=== PATIENT | female | born 1985 | race Caucasian/White ===

== ENCOUNTER 2019-06-01 12:22 | Outpatient (CLI) | payer OTHER, SELFPAY ==
--- NOTE | ~2019-06-01 | CT_ITS ---
EXAMINATION: CT abdomen pelvis wo con DATE: 06/01/2019 12:50 INDICATION: Left lower quadrant pain for one week TECHNIQUE: Computed tomography (CT) of the abdomen and pelvis was performed without intravenous contr ast. The dose-length product (DLP) was 1505.85 mGy-cm. Automated exposure control and iterative recon struction technique were employed. COMPARISON: None FINDINGS: The lung bases are clear. The heart size is normal. The liver, spleen, pancreas, gallbladde r, and adrenal glands are normal. There are punctate nonobstructing stones of the otherwise normal ki dneys. No stones are identified in the ureters or bladder. There is no hydronephrosis or hydroureter. No pathologically enlarged abdominal or pelvic lymph nodes are identified. There is no free intraper itoneal gas or evidence of bowel obstruction. The appendix is normal. There is a fat-containing umbil ical hernia. An IUD is in the uterus in expected position. There is mild lumbar spondylosis. IMPRESSION: 1. No CT correlate for the patient's symptoms. 2. Punctate nonobstructing bilateral nephrolithiasis. Reviewed, dictated and finalized at location A. F COINS INSPECTOR
== END 2019-06-01 12:23 | disposition home or self-care (01) ==
PROVIDERS: Visit Provider Family Medicine
DX: R10.32 Left lower quadrant pain (principal); N20.0 Calculus of kidney
CPT/HCPCS: 74176

== ENCOUNTER 2022-04-13 13:53 | Outpatient (CLI) | payer OTHER, SELFPAY ==
--- NOTE | ~2022-04-13 | XR_ITS ---
EXAM: XR abdomen obstructive series DATE: 04/13/2022 14:15 HISTORY: K59.09 - Other constipation, ABDOMINAL PAIN . COMPARISON: None available. FINDINGS: IUD projecting over the pelvis Clear lung bases. Normal bowel gas pattern. No organomegaly . 4 mm, somewhat linear calcification to the projecting at the tip of the right L4 transverse process . Pelvic phleboliths. Mild lumbar scoliosis, otherwise the regional bones and soft tissues normal for age. IMPRESSION: 4 mm calcification projecting over the tip of the right L4 transverse process, correlate with symptoms of renal colic. No radiographic evidence of obstruction or ileus. Reviewed, dictated and finalized at location K. ATIENT PSYCHIATRIST IMPRESSION: 4 mm calcification projecting over the tip of the right L4 transver se process, correlate with symptoms of renal colic. No radiographic evidence of obstruction or ileus.
== END 2022-04-13 13:54 | disposition home or self-care (01) ==
PROVIDERS: PCP Family Medicine; Visit Provider Family Medicine
DX: K59.09 Other constipation (principal); R10.9 Unspecified abdominal pain
CPT/HCPCS: 74019

== ENCOUNTER → 2022-04-14 08:30 | Outpatient (CLI) | payer OTHER, SELFPAY ==
--- NOTE | ~2022-04-14 | US_ITS ---
EXAMINATION: US abdomen limited DATE: 04/14/2022 08:48 INDICATION: Right upper quadrant pain TECHNIQUE: Multiple grayscale and Doppler ultrasound images of the abdomen were obtained. COMPARISON: 03/14/2013 FINDINGS: Bowel gas obscures visualization of the pancreas. The visualized portions of the pancreas a re unremarkable. The liver is normal with normal echogenicity and echotexture. No surface nodularity. Normal hepatopetal flow in the main portal vein. Stones are present in the nondistended gallbladder. There is no gallbladder wall thickening or pericholecystic fluid. The normal common bile duct measur es 3 mm. There was no sonographic Santillan sign. IMPRESSION: 1. Cholelithiasis without additional findings of cholecystitis. Reviewed, dictated and finalized at location A. ATING MACHINE OPERATOR
== END ==
PROVIDERS: PCP Family Medicine; Visit Provider Family Medicine
DX: R10.11 Right upper quadrant pain (principal); K80.20 Calculus of gallbladder without cholecystitis without obstruction
CPT/HCPCS: 76705

== ENCOUNTER 2024-08-21 12:30 | Outpatient (CLI) | payer OTHER, SELFPAY | END 2024-08-21 12:31 | disposition home or self-care (01) | LOC: MICIMG 12:32 | PROVIDERS: PCP Family Medicine; Visit Provider Physician Assistant | DX: M79.671 Pain in right foot (principal) | CPT/HCPCS: 73630 ==

== ENCOUNTER 2024-10-08 10:44 | Outpatient (CLI) | payer OTHER, SELFPAY | END 2024-10-08 10:45 | disposition home or self-care (01) | LOC: ANHLAB 10:47 | PROVIDERS: PCP Family Medicine | DX: J03.91 Acute recurrent tonsillitis, unspecified (principal) | CPT/HCPCS: 87081 ==

== ENCOUNTER 2024-11-16 08:01 | Outpatient (CLI) | payer OTHER, SELFPAY ==
--- NOTE | ~2024-11-16 | MR_ITS ---
MRI of the right foot Clinical history spontaneous rupture flexor tendon TECHNIQUE: Sagittal T1-weighted and STIR images, axial proton-density and proton-density fat-sat imag es, and coronal T1-weighted and proton-density fat-sat images were performed. FINDINGS: Bone marrow signals are unremarkable. No evidence for osteomyelitis. No fracture or bone ma rrow edema seen. Joint spaces are intact. No significant joint effusion. Flexor and extensor tendons are intact. There is mild intermetatarsal bursitis the first and third in terspaces. No Vasques's neuroma. No other soft tissue mass or fluid collection seen. Plantar fascia in tact. IMPRESSION: Visualized tendons are intact. Probable mild intermetatarsal bursitis at the first and third interspaces. Reviewed, dictated and finalized at location .
== END 2024-11-16 08:02 | disposition home or self-care (01) ==
LOC: MICIMG 08:02
PROVIDERS: PCP Family Medicine; Visit Provider Podiatrist Foot & Ankle Surgery
DX: M66.371 Spontaneous rupture of flexor tendons, right ankle and foot (principal)
CPT/HCPCS: 73718

== ENCOUNTER 2024-11-27 09:35 | Outpatient (CLI) | payer OTHER, SELFPAY ==
--- OUTSIDE RECORDS SUMMARY | 2024-11-27 09:49 | XMS_ITS | Data Portability ---
Author Organization [facility] Address [address] [place] [address] Care Team Providers Care Lead Pastor Name Role Phone JOY COLLINS Primary Care Provider Assessment Encounter Date Assessment Date Assessment LastModified by Organization Details LastModified Time 03/10/2021 03/10/2021 Annual gynecological exam performed. Patient will come back in a year unless there are new symptoms. [email or web address] Not available 03/10/2021 13:33:11 04/02/2022 04/02/2022 Annual gynecological exam performed. Patient will come back in a year unless there are new symptoms. Not available 04/02/2022 12:12:14 Plan of Treatment Reminders Order Date Submit Date Provider Last Modified By Organization Details Last Modified Time Details Appointments None recorded . Lab beta-HCG , quantita tive, serum or plasma 021 03/10/20 [facility] (Lab), [address], [place], [address], 02:16:43 Referral None recorded . Procedures None recorded . Surgeries None recorded . Imaging None recorded . Medication Orders None recorded . Patient TargetsNo targets recorded. Patient InstructionsNo instructions recorded. Reason for Referral None Reported. 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 Shift in renate sugge stive of bacte rial vagin osis. Elect karley pollack daisy d by Juhi Hernandez ret, CT on 03/17 at 9:30 AM ----- ----- ----- ----- ----- ----- ----- ----- ----- ----- ----- ----- ----- ----- ----- ----- ----- ---- HPV RESUL TS: HPV mRNA E6/E7 : Posit khushboo - HPV mRNA Detec julio cesar HPV GENOT YPE 16 (MARY ANN) : Not Detec julio cesar HPV GENOT YPE 18/45 (MARY ANN) : Not Detec julio cesar NOTE: This high risk HPV mRNA assay detec ts fourt een high- risk HPV types (16, 18, 31, 33, 35, 39, 45, 51, 52, 56, 58, 59, 66, 68) witho ut diffe renti ation . This assay can diffe renti ate HPV 16 from HPV 18/45 , but does not diffe renti ate betwe en HPV 18 and HPV 45. A negat khushboo HPV 16, 18/45 genot ype assay resul t does not exclu de the possi bilit y of cytol ogic abnor malit ies or of futur e or under lying JANET 1, JANET 3 or cance r. COMME NT: Note: This speci men was revie wed by a Cytot echno logis t and/o r Patho logis t (as indic ated in this repor t) after evalu ation using the Thinp rep Imagi ng Syste m. CLINI PALMA INFOR MATIO N: Menst rual Statu s: LMP (if appli cable ): Clini palma Histo ry/Pr eviou s Pap: Type of Neopl jaymie (if appli cable ): Signi fican t Clini palma Findi ngs: Other Histo ry: Hormo matthew (if appli cable ): PAP EDUCA HERI L NOTE: The Pap Test is a scree ava test with an inher ent false negat khushboo rate. Liqui d-bas e sampl ing may decre ase, but will not elimi bessie, false negat khushboo resul ts. A negat khushboo resul t does not precl ude the prese nce and/o r devel opmen t of disea se, since the prese nce of abnor mal cells in the sampl e depen ds on the locat ion of the lesio n and sampl ing techn ique. Eligio nued regul ar scree ava is the best metho d of cance r preve ntion . If repor julio cesar cytol ogic findi ng do not corre late with physi palma and/o r histo rical findi ngs, furth er inves tigat ion is recom nano d, as clini mario gabriel nted. Not Available [facility] (Lab) [address], [place], [address], 03/17/2021 10:33:55 04/01/20 21 04/01/2021 BHCG, QUANT ITATI VE B-HCG <0.2 mIU/m L This assay was perfo rmed using [employer] ratio n reage nts and test kits. Value s obtai john with other assay metho ds or kits canno t be used inter dumont eably . Refer ence Range s: Non-p regna nt, preme nopau nehal women : 0.0-5 .3 mIU/m L Postm enopa usal women : 0.0-7 .0 mIU/m L Glenna l Pregn sheree: Gesta heri l Age bHCG Conc. - mIU/m L 3 Weeks 5.8 - 71.7 4 Weeks 9.5 - 750 5 Weeks 217-7 138 6 Weeks 158 - 31,79 5 7 Weeks 3,697 - 162,5 63 8 Weeks 32,06 5 - 149,5 71 9 Weeks 63,80 3 - 151,4 10 10 Weeks 46,50 9 - 186,9 77 12 Weeks 27,83 2 - 210,6 12 14 Weeks 13,95 0 - 62,53 0 15 Weeks 12,03 9 - 70,97 1 16 Weeks 9,040 - 56,45 1 17 Weeks 8,175 - 55,86 8 18 Weeks 8,099 - 58,17 6 Not Available [facility] (Lab) [address], [place], [address], 04/02/2021 02:16:43 04/02/20 21 04/02/2021 CT/GC AND TRICH OMONA S VAGIN FIOR (RRNA ), URINE chlamydia trachomatis, PCR Negati ve negati ve Not Available [facility] (Lab) [address], [place], [address], 04/03/2021 16:18:55 04/02/20 21 04/02/2021 CT/GC AND TRICH OMONA S VAGIN FIOR (RRNA ), URINE neisseria gonorrhoeae, PCR Negati ve negati ve Not Available [facility] (Lab) [address], [place], [address], 04/03/2021 16:18:55 04/02/20 21 04/02/2021 CT/GC AND TRICH OMONA S VAGIN FIOR (RRNA ), URINE trichomonas vaginalis ribosomal RNA (rrna) Negati ve negati ve Not Available [facility] (Lab) [address] [place], [address], 04/03/2021 16:18:55 04/02/20 22 04/02/2022 IMAGE GUIDE D PAP AND HPV REGAR DLESS image guided Pap, HPV regardless of Pap result SEE RESULT S BELOW CASE REPOR T: Cytol ogy Gynec ologi palma Repor t Case: [id number] Autho amarjit cunningham Provi sissy: Saran wang , Mitchel Harman cted: 04/02 1618 MISSION PLANNER Order ing Locat ion: [place] Patho logy Recei stacy: 04/03 0021 First Scree n: Osmany lawrence, Juhi keenan, CT Rescr een: Kristin squires, Yari chapman, CT Speci men: Julio C escalante Pap - Image d, Cervi x STATE MENT OF ADEQU ACY: Satis facto ry for evalu ation Trans forma tion zone compo nent prese nt FINAL DIAGN OSIS: Negat khushboo for Intra epith elial Lesio n or Miguel keen (NIL) . Elect kristyjim pollack daisy d by Kristin squires, Yari chapman, CT on 2021 at 2:49 PM ----- ----- ----- ----- ----- ----- ----- ----- ----- ----- ----- ----- ----- ----- ----- ----- ----- ---- HPV RESUL TS: HPV mRNA E6/E7 : No HPV mRNA Detec julio cesar NOTE: This high risk HPV mRNA assay detec ts fourt een high- risk HPV types (16, 18, 31, 33, 35, 39, 45, 51, 52, 56, 58, 59, 66, 68) witho ut diffe renti ation . COMME NT: Note: This speci men was revie wed by a Cytot echno logis t and/o r Patho logis t (as indic ated in this repor t) after evalu ation using the Thinp rep Imagi ng Syste m. CLINI PALMA INFOR MATIO N: Menst rual Statu s: LMP (if appli cable ): Clini palma Histo ry/Pr eviou s Pap: Type of Neopl jaymie (if appli cable ): Signi fican t Clini palma Findi ngs: Other Histo ry: Hormo matthew (if appli cable ): PAP EDUCA HERI L NOTE: The Pap Test is a scree ava test with an inher ent false negat khushboo rate. Liqui d-bas ed sampl ing may decre ase, but will not elimi bessie, false negat khushboo resul ts. A negat khushboo resul t does not precl ude the prese nce and/o r devel opmen t of disea se, since the prese nce of abnor mal cells in the sampl e depen ds on the locat ion of the lesio n and sampl ing techn ique. Eligio nued regul ar scree ava is the best metho d of cance r preve ntion . If repor julio cesar cytol ogic findi ng do not corre late with physi palma and/o r histo rical findi ngs, furth er inves tigat ion is recom nano d, as clini mario gabriel nted. Not Available [facility] (Lab) [address], [place], [address], 04/06/2022 15:51:46 Result Notes None recorded. Problems Name Problem SNOMED Code Status Onset Date Resolution Date Notes Provider Name and Address Organization Details Recorded Time Pregnanc y test positive 207001498 Completed 201208/23/2013 Pregnanc y examinat ion or test, positive result;R ecorded Elsewher e: No Locat ion: [facility] S ource: EHR Laboratory Animal Caretaker juventino: N Tee ce ID: 0001 Dieter lable Time: 10:15:00 AM Jalyn Marc [facility] 1 12:55:26 Senile hyperker atosis [id number] Completed 201203/10/2021 Other seborrhe ic keratosi s;Record ed Elsewher e: No Locat ion: [facility] S ource: EHR Laboratory Animal Caretaker juventino: Y Practi ce ID: 0001 Dieter lable Time: 10:15:00 AM Jalyn Marc [facility] 12:55:34 Missed miscarri age [id number] Completed 201208/23/2013 Missed ;Recorde d Elsewher e: No Locat ion: Lluvia montes [facility] S ource: EHR Laboratory Animal Caretaker juventino: N Practi ce ID: 0001 Dieter lable Time: 04:00:00 PM Jalyn Marc [facility] 1 12:55:17 Missed miscarri age [id number] Completed 201203/10/2021 Missed ;Practic e ID: 0001 Jalyn Marc [facility] 1 12:55:17 Deliveri es by [id number] Completed 201208/23/2013 delivery , without mention of indicati on, unspecif ied as to episode of care;Rec orded Elsewher e: No [facility] S ource: EHR Laboratory Animal Caretaker juventino: Y Practi ce ID: 0001 Dieter lable Time: 03:45:00 PM Jalyn Marc [facility] 1 12:55:07 Amenorrh ea [id number] Completed 201208/23/2013 Absence of menstrua tion;Rec orded Elsewher e: No [facility]at [facility] S ource: EHR Laboratory Animal Caretaker juventino: N Practi ce ID: 0001 Dieter lable Time: 02:15:00 PM Not Available [facility] 0 21:20:11 Routine antenata l care Completed 201208/23/2013 Supervis ion of other normal pregnanc y;Record ed Elsewher e: No Locat ion: Lluvia montes [facility] S ource: EHR Laboratory Animal Caretaker juventino: N Practi ce ID: 0001 Dieter lable Time: 02:15:00 PM Jalyn Marc [facility] 1 12:55:31 Ultrason ography Completed 201208/23/2013 Antenata l screenin g for malforma tion using ultrason ics;Maximiliano rded Elsewher e: No Locat ion: Lluvia montes [facility] S ource: EHR Laboratory Animal Caretaker juventino: N Practi ce ID: 0001 Dieter lable Time: 03:00:00 PM Jalyn douglass [facility] 12:55:44 Antenata l screenin g Completed 201208/23/2013 Antenata l screenin g for malforma tion using ultrason ics;Maximiliano rded Elsewher e: No Locat ion: [facility] S ource: EHR Laboratory Animal Caretaker juventino: N Practi ce ID: 0001 Dieter lable Time: 03:00:00 PM Jalyn douglass, [facility] 12:54:59 Congenit al malforma tion [id number] Completed 201208/23/2013 Antenata l screenin g for malforma tion using ultrason ics;Maximiliano rded Elsewher e: No Locat ion: [facility] S ource: EHR Laboratory Animal Caretaker juventino: N Practi ce ID: 0001 Dieter lable Time: 03:00:00 PM Jalyn douglass, [facility] 12:55:06 Primigra bryan [id number] Completed 201203/10/2021 Supervis ion of normal first pregnanc y;Practi ce ID: 0001 Jalyn douglass, [facility] 12:55:28 Ultrason ography Completed 201203/10/2021 Antenata l screenin g for malforma tion using ultrason ics;Prac karolina ID: 0001 Jalyn douglass, [facility] 12:55:44 Antenata l screenin g Completed 201203/10/2021 Antenata l screenin g for malforma tion using ultrason ics;Prac karolina ID: 0001 Jalyn douglass, [facility] 12:54:59 Congenit al malforma tion [id number] Completed 201203/10/2021 Antenata l screenin g for malforma tion using ultrason ics;Prac karolina ID: 0001 Jalyn douglass, [facility] 12:55:06 Complica tion related to pregnanc y Completed 201208/23/2013 Weight Gain Poor Antepart um;Recor ded Elsewher e: No Locat ion: Lluvia [facility] S ource: EHR Laboratory Animal Caretaker juventino: N Practi ce ID: 0001 Dieter lable Time: 02:00:00 [facility] 12[facility]:04 Routine antenata l care Completed 201203/10/2021 Supervis ion of other normal pregnanc y;Practi ce ID: 0001 Jalyn Marc [facility] 12:55:31 Acute sinusiti s [id number] Completed 201203/10/2021 Acute sinusiti s, unspecif ied;Prac karolina ID: 0001 Jalyn Marc [facility] 12:54:58 Complica tion related to pregnanc y Completed 201303/10/2021 Weight Insuffic ient Antepart um;Pract ice ID: 0001 Jalyn Marc [facility] 12:55:04 delivery - delivere d [id number] Completed 201303/10/2021 Previous delivery , unspecif ied as to episode of care in pregnanc y;Practi ce ID: 0001 Jalyn Marc [facility] 12:55:02 Single live from singleto n pregnanc y [id number] Completed 201303/10/2021 Mother with single liveborn ;Practic e ID: 0001 Jalyn Marc [facility] 12:55:37 Postoper ative follow-u p visit Completed 201308/23/2013 Follow-u p examinat ion, followin g unspecif ied surgery; Recorded Elsewher e: No Locat ion: Lluvia montes [facility] S ource: EHR Laboratory Animal Caretaker juventino: N Practi ce ID: 0001 Dieter lable Time: 02:15:00 PM Not Available [facility] 0 21:20:13 Urinary tract infectio us disease [id number] Completed 201303/10/2021 Urinary Tract Infectio n;Record ed Elsewher e: No Locat ion: Lluvia montes [facility] S ource: EHR Laboratory Animal Caretaker juventino: N Practi ce ID: 0001 Dieter lable Time: 02:15:00 PM Jalyn [facility] 12:55:45 Postpart um care Completed 201308/23/2013 Post Followup ;Recorde d Elsewher e: No Locat ion: Lluvia montes [facility] S ource: EHR Laboratory Animal Caretaker juventino: N Practi ce ID: 0001 Dieter lable Time: 02:00:00 PM Jalyn , [facility] 12:55:23 Deliveri es by [id number] Completed 201303/10/2021 delivery , without mention of indicati on, unspecif ied as to episode of care;Rec orded Elsewher e: No [facility] S ource: EHR Laboratory Animal Caretaker juventino: Y Practi ce ID: 0001 Dieter lable Time: 10:30:00 AM Jalyn Marc [facility] 12:55:07 Breast lump [id number] Completed 201303/10/2021 Breast Lump Or Mass;Rec orded Elsewher e: No Locat ion: Lluvia montes [facility] S ource: EHR Laboratory Animal Caretaker juventino: N Practi ce ID: 0001 Dieter lable Time: 02:45:00 PM Jalyn [facility] 1 12:55:01 Postpart um care Completed 201303/10/2021 Post Followup ;Recorde d Elsewher e: No Locat ion: [facility] S ource: EHR Laboratory Animal Caretaker juventino: N Practi ce ID: 0001 Dieter lable Time: 02:30:00 PM Jalyn Marc [facility] 12:55:23 Pregnanc y test positive [id number] Completed 201303/10/2021 Positive Pregnanc y Test;Pra ctice ID: 0001 Jalyn Marc [facility] 12:55:26 Abnormal weight gain [id number] Completed 201303/10/2021 Weight gain abnormal ;Recorde d Elsewher e: No Locat ion: [facility] S ource: [facility] Laboratory Animal Caretaker juventino: N Practi ce ID: 0001 Dieter lable Time: 08:30:00 AM Jalyn Marc [facility] 12:54:56 Screenin g for malignan t neoplasm of cervix Completed 201303/10/2021 Screenin g for malignan t neoplasm s of the cervix;R ecorded Elsewher e: No Locat ion: [facility] N Practi ce ID: 0001 Dieter lable Time: 08:30:00 AM Jalyn Marc [facility] 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 12:55:42 Morbid obesity [id number] Completed 201303/10/2021 Obesity, Morbid;R ecorded Elsewher e: No Locat ion: [facility] S ource: EHR Laboratory Animal Caretaker juventino: N Practi ce ID: 0001 Dieter lable Time: 08:30:00 AM Jalyn douglass [facility] 12:55:19 Vaginiti s and vulvovag initis Completed 201303/10/2021 Vaginiti s;Record ed Elsewher e: No Locat ion: Jess simon [facility] S ource: EHR Laboratory Animal Caretaker juventino: N Practi ce ID: 0001 Dieter lable Time: 02:00:00 PM Jalyn Marc [facility] 12:55:47 Pregnanc y test negative [id number] Completed 201503/10/2021 Encounte r for pregnanc y test, result negative ;Recorde d Elsewher e: No Locat ion: [facility] S ource: EHR Laboratory Animal Caretaker juventino: N Practi ce ID: 0001 Dieter lable Time: 02:30:00 PM Jalyn Marc [facility] 12:55:25 Dyspareu josi [id number] Completed 201503/10/2021 Dyspareu josi;Maximiliano rded Elsewher e: No Locat ion: [facility] S ource: EHR Laboratory Animal Caretaker juventino: N Practi ce ID: 0001 Dieter lable Time: 09:45:00 AM Jalyn Marc [facility] 12:55:11 Finding of pattern of menstrua l cycle [id number] Completed 201503/10/2021 Excessiv e and frequent menstrua tion with irregula r cycle;Re corded Elsewher e: No Locat ion: [facility] S ource: EHR Laboratory Animal Caretaker juventino: N Practi ce ID: 0001 Dieter lable Time: 10:00:00 AM Jalyn Marc [facility] 12:55:14 Polyp of cervix [id number] Completed 201503/10/2021 Polyp of cervix uteri;Pr actice ID: 0001 Jalyn Marc [facility], [facility] 12:55:22 Insertio n of intraute rine contrace ptive device Completed 201503/10/2021 Encounte r for insertio n of intraute rine contrace ptive device;P ractice ID: 0001 Jalyn douglass [facility] 12:55:15 Removal of intraute rine device Completed 201503/10/2021 Encounte r for removal of intraute rine contrace ptive device;P ractice ID: 0001 Jalyn douglass, [facility] 12:55:30 Finding of pattern of menstrua l cycle Completed 201503/10/2021 Other specifie d irregula r menstrua tion;Pra ctice ID: 0001 Jalyn Marc [facility] 12:55:12 Depressi ve disorder [id number] Completed 201603/10/2021 Major depressi ve disorder , single episode, unspecif ied;Prac karolina ID: 0001 Jalyn Marc [facility] 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 12:55:40 Severe obesity [id number] 104 Completed 201703/10/2021 Morbid (severe) obesity due to excess calories ;Recorde d Elsewher e: No Locat ion: Lluvia montes [facility] S ource: EHR Laboratory Animal Caretaker juventino: N Practi ce ID: 0001 Dieter lable Time: 08:30:00 [facility] Concept Completed 201703/10/2021 Encntr for general adult medical exam w/o abnormal findings ;Recorde d Elsewher e: No [facility] Laboratory Animal Caretaker juventino: N Tee ce ID: 0001 Dieter lable Time: 08:30:00 AM Jalyn douglass, [facility] 12:55:39 Pain [id number] Completed 201803/10/2021 Pain, unspecif ied;Maximiliano rded Elsewher e: No Locat ion: [facility] simon [facility] S ource: EHR Laboratory Animal Caretaker juventino: N Practi ce ID: 0001 Dieter lable Time: 10:30:00 AM Jalyn Marc [facility], [facility] 12:55:20 Problem Notes None recorded. Procedures Surgical History Date Name Laterality Status Provider Name and Address Organization Details Recorded Time 04/02/20 21 IUD Removal completed Yuli Mixon [facility] [address], [place], [address], [facility] 04/02/2021 12:29:31 04/02/20 21 IUD Insertion [facility] [address], [place], [address], [facility] 04/02/2021 12:30:04 03/10/20 21 Date of Last Pap Smear completed Allyson Hu [facility] 04/27/2021 11:17:05 01/20/20 19 Date of Last Mammogram completed Allyson Hu [facility] 04/27/2021 11:19:29 10/03/19 16 endometrial biopsy completed Allyson Hu [facility] 04/27/2021 11:25:48 05/02/19 16 Hysteroscopy completed Allyson Hu [facility] 04/27/2021 11:24:54 06/28/19 14 section completed Allyson Hu [facility] 04/27/2021 11:25:10 05/02/19 13 Dilation and Curettage completed [facility] 04/27/2021 11:26:08 03/22/20 06 section completed [facility] 04/27/2021 11:25:26 05/02/18 91 removal of silastic tubes from ear completed [facility] 04/27/2021 11:26:25 Imaging Results None recorded. Procedure Notes None recorded. Medical Equipment None Reported. Allergies Allergen ID Allergen Name Allergen Category Reaction Reaction Severity Criticality Documentation Date Start Date Code Code System Note Provider Name and Address Organization Details Recorded Time 72641 metoclopr amide Not available Not available Not available Not available 03/10/2021 6915 [facility] 13:19:18 Medications Name Sig Start Date Stop Date Status Note LastModified by Organization Details LastModified Time Mirena 21 mcg/24 hr (up to 8 years) 52 mg intrauter ine device insert 2018 active Prescrib ed Elsewher e: No Locat ion: [facility] odify By: jaylen farah DateTime : 08/07/19 19 04:43:57 PM Not Available Not Available Not Available doxycycli ne hyclate 100 mg capsule take 1 capsule (100MG) by oral route 2 times every day for 10 days 08/23 completed Prescrib ed Elsewher e: No Locat ion: [facility] odify By: [email or web address] lawrence DateTime : 08/17/19 13 09:57:48 AM Not Available Not Available Not Available valacyclo vir 1 gram tablet TAKE 1 TABLET BY MOUTH ONCE DAILY active Not Available Not Available No t Available hydrocodo ne 5 mg-acetam inophen 325 mg tablet TAKE 1 TO 2 TABLETS BY MOUTH EVERY 6 HOURS NEEDED FOR PAIN FOR 3 DAYS 04/02 completed Not Available Not Available Not Available rizatript an 10 mg tablet TAKE 1 TABLET BY MOUTH ONCE DAILY NEEDED FOR MIGRAINE HEADACHE ,MAY REPEAT ONCE AFTER AT LEAST 2 HOURS 04/02 completed Not Available Not Available Not Available propranol ol ER 60 mg capsule,2 4 hr,extend ed release TAKE 1 CAPSULE BY MOUTH ONCE DAILY active Not Available Not Available No t Available doxycycli ne hyclate 50 mg capsule take 1 capsule by oral route every 12 hours 11/22 completed Prescrib ed Elsewher e: Yes Loca tion: Lluvia montes [facility] odify By: anatoliy Irby untabhijit DateTime : 08/24/19 13 03:45:00 PM Not Available Not Available Not Available Zithromax Z-Michael 250 mg tablet take 2 tablet (500MG) by oral route every day for 1 day then 1 tablet (250 mg) by oral route once daily for 4 days 05/08 completed Prescrib ed Elsewher e: No Locat ion: Lluvia montes [facility] odify By: zora mayorgauntabhijit DateTime : 05/04/19 14 02:00:00 PM Not Available Not Available Not Available Diflucan 150 mg tablet take 1 tablet by oral route once 09/15 completed Prescrib ed Elsewher e: No Locat ion: Jess simon [facility] odify By: sheryl Montes ncounter DateTime : 01/15/20 14 11:51:48 AM Not Available Not Available Not Available topiramat e 25 mg tablet take 2 tablet by oral route 2 times every day in the morning and evening 03/10 completed Prescrib ed Elsewher e: Yes Loca tion: Lluvia montes [facility] odify By: sheryl Montes ncounter DateTime : 12/30/19 17 11:30:00 AM Not Available Not Available Not Available prochlorp erazine maleate 10 mg tablet take 1 tablet (10MG) by oral route 3 times every day 07/04 completed Prescrib ed Elsewher e: No [facility]: aline Montes ncounter DateTime : 01/12/20 13 11:00:00 AM Not Available Not Available Not Available Reglan 10 mg tablet take 1 tablet (10MG) by oral route 4 times every day 30 minutes before meals and at bedtime 07/04 completed Prescrib ed Elsewher e: No Locat ion: Lluvia montes [facility] odify By: aline farah DateTime : 12/15/19 13 03:30:00 PM Not Available Not Available Not Available tramadol 50 mg tablet TAKE 1 TABLET BY MOUTH EVERY 6 HOURS NEEDED FOR PAIN 04/02 completed Not Available Not Available Not Available chlorprom azine 10 mg tablet take 1 tablet (10MG) by oral route 4 times every day 07/04 completed Prescrib ed Elsewher e: No Locat ion: Lluvia montes [facility] odify By: aline farah DateTime : 02/09/20 13 11:45:00 AM Not Available Not Available Not Available Metrogel Vaginal 0.75 % (37.5 mg/5 gram) insert 1 applicat orful by vaginal route every day at bedtime 01/08 completed Prescrib ed Elsewher e: No Locat ion: Lluvia montes [facility] odify By: carlos vance DateTime : 12/20/19 14 10:44:24 AM Not Available Not Available Not Available Zoloft 50 mg tablet TAKE ONE TABLET BY MOUTH ONCE DAILY 01/16 completed Prescrib ed Elsewher e: No Locat ion: Lluvia montes [facility] odify By: holly farah DateTime : 08/06/19 18 10:36:22 AM Not Available Not Available Not Available Diflucan 100 mg tablet take 1 tablet (100MG) by oral route every day 08/29 completed Prescrib ed Elsewher e: No Locat ion: Lluvia montes [facility] odify By: carlos vance DateTime : 08/24/19 14 10:30:00 AM Not Available Not Available Not Available Methergin e 0.2 mg tablet take 1 tablet (0.2MG) by oral route every 6 hours 08/23 completed Prescrib ed Elsewher e: No Locat ion: Lluvia montes [facility] odify By: [email or web address] Encounte r DateTime : 08/17/19 13 09:57:48 AM Not Available Not Available Not Available doxycycli ne monohydra te 100 mg capsule take 1 capsule by oral route 2 times every day for 5 days 11/07 completed Prescrib ed Elsewher e: No Locat ion: Lluvia montes [facility] odify By: vanessa vance DateTime : 11/04/19 16 11:00:00 AM Not Available Not Available Not Available Cipro 500 mg tablet take 1 tablet (500MG) by oral route every 12 hours 07/25 completed Prescrib ed Elsewher e: No [facility] By: aline farah DateTime : 07/05/19 14 02:15:00 PM Not Available Not Available Not Available losartan 25 mg tablet take 1 tablet by oral route every day 03/10 completed Prescrib ed Elsewher e: Yes Loca tion: Lluvia [facility] odify By: sheryl mayorgauntabhijit DateTime : 10/03/19 16 10:15:00 AM Not Available Not Available Not Available triamtere ne 37.5 mg-hydroc hlorothia zide 25 mg tablet TAKE 1 TABLET BY MOUTH IN THE MORNING 04/02 completed Not Available Not Available Not Available Valtrex 500 mg tablet take 1 tablet by oral route 2 times every day 03/10 completed Prescrib ed Elsewher e: Yes Loca tion: Lluvia montes [facility] odify By: sandy lawrence DateTime : 08/12/19 18 08:30:00 AM Not Available Not Available Not Available lisinopri l 5 mg tablet take 1 tablet by oral route every day 10/02 completed Prescrib ed Elsewher e: Yes Loca tion: Lluvia [facility] odify By: sheryl mayorgauntabhijit DateTime : 09/16/19 16 02:30:00 PM Not Available Not Available Not Available [place] 10 mg-325 mg tablet take 1 tablet by oral route every 4 - 6 hours as needed for pain 07/25 completed Prescrib ed Elsewher e: Yes Loca tion: Lluvia montes [facility] odify By: aline mayorgaunter DateTime : 07/05/19 14 02:15:00 PM Not Available Not Available Not Available scopolami ne 1 mg over 3 days transderm al patch APPLY 1 PATCH BEHIND EAR AT BEDTIME (NIGHT BEFORE PROCEDUR E) 04/02 completed Not Available Not Available Not Available Vitamin D2 1,250 mcg (50,000 unit) capsule take 1 capsule ([id number] ITS) by oral route every week 07/04 completed Prescrib ed Elsewher e: No Locat ion: Jess simon [facility] odify By: aline mayorgaunter DateTime : 04/10/20 13 12:02:07 PM Not Available Not Available Not Available ondansetr on 4 mg disintegr ating tablet DISSOLVE 1 TABLET IN MOUTH EVERY 4 HOURS NEEDED FOR NAUSEA 04/02 completed Not Available Not Available Not Available losartan 100 mg tablet TAKE 1 TABLET BY MOUTH DAILY active Not Available Not Available No t Available Triamtere ne W/Hctz 37.5 mg-25 mg capsule 04/02 completed Not Available Not Available Not Available NuvaRing 0.12 mg-0.015 mg/24 hr vaginal insert 1 vaginal ring by vaginal route every month leave in place for 3 weeks, remove for 1 week 12/29 completed Prescrib ed Elsewher e: No [facility]: sheryl mayorgaunter DateTime : 10/03/19 16 10:15:00 AM Not Available Not Available Not Available Cipro XR 500 mg tablet,ex tended release take 1 tablet (500MG) by oral route every day 07/25 completed Prescrib ed Elsewher e: No Locat ion: [facility] odify By: aline mayorgaer DateTime : 07/05/19 14 02:15:00 PM Not Available Not Available Not Available topiramat e 50 mg tablet TAKE 1 TABLET BY MOUTH TWICE DAILY active Not Available Not Available No t Available propranol ol 05/13 completed Not Available Not Available Not Available aprepitan t 40 mg capsule TAKE 1 CAPSULE BY MOUTH 3 HOURS PRIOR TO SURGERY( 1 CAPSULE ON POST - OP DAY 1 AND 2) 04/02 completed Not Available Not Available Not Available Amitiza 8 mcg capsule take 1 capsule by oral route 2 times every day with food and water 08/11 completed Prescrib ed Elsewher e: Yes Loca tion: Lluvia montes [facility] odify By: sandy lawrence DateTime : 12/30/19 17 11:30:00 AM Not Available Not Available Not Available Zeyadcachorro-Adrian uo DHA 29 mg-1 mg-400 mg oral pack take 2 by Oral route every day for 30 days 12/21 completed Prescrib ed Elsewher e: No Locat ion: Lluvia montes [facility] odify By: zora farah DateTime : 11/23/19 13 02:15:00 PM Not Available Not Available Not Available Linzess 145 mcg capsule 05/13 completed Not Available Not Available Not Available Linzess 72 mcg capsule 04/02 completed Not Available Not Available Not Available Se- 19 29 mg iron-1 mg tablet take 1 tablet by oral route every day 08/23 completed Prescrib ed Elsewher e: No Locat ion: Jess simon [facility] odify By: dax lawrence DateTime : 07/07/19 13 10:15:00 AM Not Available Not Available Not Available Vitals Date Recorded Body height Body mass index (BMI) Body weight Systolic And Diastolic Provider Name and Address Organization Details Last Updated DateTime 05/14/2021 159.39 cm 44.1 kg/m2 467435.32 g 120/74 mm[Hg] [facility] 05/14/2021 10:45:14 Date Recorded Body height Body mass index (BMI) Body weight Systolic And Diastolic Provider Name and Address Organization Details Last Updated DateTime 03/10/2021 159.39 cm 44.1 kg/m2 933721.32 g 102/64 mm[Hg] [facility] 03/10/2021 13:35:36 Date Recorded Body height Body mass index (BMI) Body weight Systolic And Diastolic Provider Name and Address Organization Details Last Updated DateTime 04/02/2021 159.39 cm 43.9 kg/m2 182556.72 g 116/63 mm[Hg] Allyson Hu [facility] 04/02/2021 12:14:04 Date Recorded Systolic And Diastolic Provider Name and Address Organization Details Last Updated DateTime 04/02/2022 122/72 mm[Hg] Yuli Mixon, [facility] [address], [place], [address], [facility] 04/02/2022 22:09:02 Date Recorded Body height Body weight Body mass index (BMI) Provider Name and Address Organization Details Last Updated DateTime 04/02/2022 160.02 cm 22799.03 g 31.7 kg/m2 Jalyn Monico [facility] 04/02/2022 12:12:46 Social History Question Answer Notes LastModified by Organizat ion Details LastModified Time Do You Have An Advance Directive? No [email or web address] Information n ot available 04/02/2021 How Many Years Have You Consumed Alcohol? 10 [email or web address] Information not available 04/02/2021 Are You Blind Or Do You Have Difficulty Seeing? No [email or web address] Information n ot available 04/02/2021 What Is Your Level Of Caffeine Consumption? Occasional Information not available 04/02/2021 How Much Tobacco Do You Chew? None [email or web address] Information not available 04/02/2021 In The 14 Days Before Symptom Onset, Have You Had Close Contact With A Laboratory-confirm ed COVID-19 While That Case Was Ill? No Information n ot available 04/02/2021 In The 14 Days Before Symptom Onset, Have You Had Close Contact With A Person Who Is Under Investigation For COVID-19 While That Person Was Ill? No [email or web address] Information not available 04/02/2021 Have You Been To An Area Known To Be High Risk For COVID-19? No [email or web address] Information not available 04/02/2021 Are You Deaf Or Do You Have Serious Difficulty Hearing? No [email or web address] Information not available 04/02/2021 What Type Of Diet Are You Following? REGULAR [email or web address] Information n ot available 04/02/2021 What Is The Highest Grade Or Level Of School You Have Completed Or The Highest Degree You Have Received? [id number] [email or web address] Information not available 04/02/2021 Are There Any Guns Present In Your Home? Yes [email or web address] Information not available 04/02/2021 Do You Use Protection During Sex? No [email or web address] Information not available 04/02/2021 Do You Use Your Seat Belt Or Car Seat Routinely? Yes [email or web address] Information not available 04/02/2021 Do You Have Smoke And Carbon Monoxide Detectors In Your Home? Yes Information not available 04/02/2021 How Much Tobacco Do You Smoke? No [email or web address] Information not available 04/02/2021 Do You Use Sunscreen Routinely? No Information not available 04/02/2021 Have You Used IV Drugs? No [email or web address] Information not available 04/02/2021 Sex: Unknown Functional Status Question Answer Note LastModified by Organizat ion Details LastModified Time Do you use any illicit or recreational drugs? No [email or web address] Information not available 04/02/2021 What is your level of alcohol consumption? Occasional [email or web address] Information not available 04/02/2021 Are you able to walk? 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 Moderate Information not available 04/02/2022 Mental Status Question Answer Note LastModified by Organization D etails LastModified Time Do you feel stressed (tense, restless, nervous, or anxious, or unable to sleep at night)? [id number] [email or web address] Information not available 04/02/2021 Family History Relationship Description Onset Age of this Age Resolved Age Notes LastModified by Organization Details LastModified Time Maternal Grandmother Malignant neoplasm of lung [email or web address] Not available 2020 12:56:23 Maternal Grandmother Malignant tumor of breast [email or web address] Not available 2020 12:56:30 Paternal Grandfather Diabetes mellitus [email or web address] Not available 04/27 11:22:57 Paternal Uncle Diabetes mellitus [email or web address] Not available 04/27 11:22:57 Sister Asthma [email or web address] Not available 04/27/2021 11:23:08 Mother Lupus erythematosu s [email or web address] Not available 2021 11:59:44 Mother Myocardial infarction [email or web address] Not available 04/02 11:23:50 Mother Heart disease [email or web address] Not available 04/27 11:23:58 Mother Disorder of thyroid gland [email or web address] Not available 04/27 11:24:13 Medical History Condition Response Allergies (Food, seasonal, environmental ) N Other N Breast Cancer N Drug/Latex Allergies/Reactions Y Blood Transfusion N Dermatologic Disorders N Lung Disease N Defects or Inherited Disease N Breast Problem Y Gestational Diabetes N Hematologic disorders N Anesthesia Complications N History of STI Y Deep Vein Thrombosis N Polycystic ovary syndrome N Anxiety Disorder N Autoimmune disease N Arthritis N Infertility N Polyps N Acid Reflux (GERD) N History of abnormal pap Y Cancer N Stroke N Varicosities N Neurologic/Epilepsy N Endometriosis Y High Cholesterol N Headaches Y Fibromyalgia N Kidney Disease N Heart Problems N Kidney or Bladder Problems N Thyroid Problems N GI Problems N Eating Disorder N Anemia N Art (IVF or FET) N Psychiatric Illness N Ovarian Cancer N Diabetes N Pulmonary (TB, Asthma) N Hepatitis/Liver Disease N No Past Medical History N Eczema N Urinary Tract Infection N Abuse/Domestic Violence N Asthma N Trauma/Violence N Depression/ depression N Heart Disease N Pre-Eclampsia N Hypertension Y Osteoporosis N Thrombophilias N Gynecological History Statement/Question Response Abnormal Pap Y Date of Last Mammogram 01/19/2019 Date of LMP 03/19/2021 On BCP's at Conception? N Was last menstrual period normal N STIs/STDs Yes Current Control Method IUD Age at First Child 20 Most Recent Bone Density Sexually Active? Y Menses Monthly N Age of first menstrual cycle 12 Date of Last Pap Smear 03/10/2021 Sexual Problems? Y Desired Control Method IUD LMP Approximate Obstetrics History GPAL:G 3 P 0 0 1 2 Type Value Spontaneous 1 Living 2 Total 3 Past Encounters Encounter ID Performer Location Encounter Start Date Encounter Closed Date Diagnosis/Indication Diagnosis SNOMED-CT Code Diagnosis ICD10 Code Diagnosis Note [id number] [facility] [address] [address] 03/10/2021 12:59:40 03/10/2021 14:15:12 Gynecologic examination 27823092 Z01.419 Take Calcium with Vitamin D 1200mg daily if not receiving in daily diet. It is strongly advised to have an annual flu shot and up can obtain at most pharmacies . If you have not had a TDap shot in the last 10 years you should obtain one as well. Discussed with patient & provided with informatio n regarding Gardisil vaccine to prevent the 4 strains for HPV that cause cervical cancer if under age 26. Encourage safe sexual practices, to use condoms and limit partners if not already in a monogamous relationsh ip. Do monthly self breast exams. Have mammogram yearly or every other year depending on family history. BRCA testing is now available for patients with strong genetic history of female cancer. If interested contact the office. Engage in daily exercise of low impact aerobic exercise 45-60 minutes 4-5 times weekly. Avoid tobacco and illicit drugs as well as using moderation with alcohol intake less than 1-2 8 oz beverages daily. This lifestyle behavior pattern will lead to less health conditions and longer life span. If BMI greater than 25 weight watchers or dietary consult advised. Patient received above instructio ns, and questions have been answered. If you have any questions please call or respond to this email. Patient was made aware of the patient portal and may obtain a paper copy of today's plan if desired. Pa/hpv updatedSTD updatedIUD .Wi ll abstain x 2wks, return for serum HCG the 1-2 days prior to removal/re insertion & as long as neg will remove/rep lace IUD Mirena.Gen etic screen discussed Contracept ion care management [id number] Z30.9 [id number] Yuli Mixon [facility] [address] [address] 04/02/2022 11:58:58 04/05/2022 15:31:03 Gynecologic examination 48909857 Z01.419 Z11.51 Take Calcium with Vitamin D 1200mg daily if not receiving in daily diet. It is strongly advised to have an annual flu shot and up can obtain at most pharmacies . If you have not had a TDap shot in the last 10 years you should obtain one as well. Discussed with patient & provided with informatio n regarding Gardisil vaccine to prevent the 4 strains for HPV that cause cervical cancer if under age 26. Encourage safe sexual practices, to use condoms and limit partners if not already in a monogamous relationsh ip. Do monthly self breast exams. Have mammogram yearly or every other year depending on family history. BRCA testing is now available for patients with strong genetic history of female cancer. If interested contact the office. Engage in daily exercise of low impact aerobic exercise 45-60 minutes 4-5 times weekly. Avoid tobacco and illicit drugs as well as using moderation with alcohol intake less than 1-2 8 oz beverages daily. This lifestyle behavior pattern will lead to less health conditions and longer life span. If BMI greater than 25 weight watchers or dietary consult advised. Patient received above instructio ns, and questions have been answered. If you have any questions please call or respond to this email. Patient was made aware of the patient portal and may obtain a paper copy of today's plan if desired. Pap/hpv sent STD Screen declined Genetic Screen discussed Colon Screen na Dexa Screen na Routine Labs [facility] [place] [id number] Yuli Mixon , [facility] [address] [address] 04/02/2021 11:21:28 04/02/2021 12:32:14 Removal of intrauterine device [id number] Z30.432 She states the symptoms are of new onset. Patient is here due to the approachin g due date or the nature of her IUD and wishes to have it removed. We discussed the timing of the replacemen t with the next bleed or the need to abstain if she no longer has regular cycles. She expressed understand ing. It was explained that she may have bleeding or spotting after the removal of the device today as well. If cannot see the strings of this device we will need to get an US image to make that the device is still in place and not in an unobtainab le position. She expressed understand ing of all the above instructio ns. Insertion of intrauterine contraceptive device [id number] Z30.430 She has been counseled on all of the r/b/a of placement of an intrauteri ne device that include but are not limited to uterine perforatio n, injury to cervix, vagina, bladder, and bowel.Risk s of bleeding due to injury or increased irregular bleeding due to progestin effect of the device. Risks of infection would be increased within the first 21 days of placement with concommita nt cervicitis . She understand s that the device will need to be removed in this instance due to increased risk of Pelvic inflammato ry disease. Patient is aware she is at higher risk for STD and if contracted she could lose her fertility. Pt is aware that if occurs that she should contact office immediatel y to rule out ectopic which could be life threatenin g. IUD will also need to be removed and this could cause miscarriag e. Patient also informed that in the event her strings are absent or embedded at the time of removal she may need to have the IUD surgically removed. She was informed of the above and properly consented. IUD placed w/o complicati on. Patient should return to office after next period to check for string placement. Patient to expect irregular bleeding but should be seen in the ED if bleeding increases to soaking a pad an hour for at least 2 hours. She verbalized understand ing. RTO x 6-8wks string check [id number] [facility] [address] [address] 05/14/2021 10:35:41 05/14/2021 11:21:35 Intrauterine device check [id number] Z30.431 Patient is here for 4-6wk IUD string check. She denies complicati ons, pain, or unpleasant side effects. Happy with this control method. Wishes to continue. Time spent in visit is a total of 15 mins with at least 50% of visit consisting of counseling and review of plan of care. Additional precaution magaly measures were taken to minimize potential exposure to the Covid-19 virus during this patient s visit, including available hand circulation representative upon arrive, temperatur e check and being asked a series of screening questions. All staff wore face coverings during this encounter, as well as provided additional cleaning and sanitizing of all surfaces, including countertop s, pens, chairs, door handles, light switches, etc, prior to and following the patient s visit. Health Concerns Section Related Observation LastModified by Organization Detai ls LastModified Time None Recorded Concern Status LastModified by Organization Details LastModified Time None Recorded Advance Directives Directive N: Payers Insurance Date Sequence Insurance Name Policy Number Policy Stanton Covered Member ID Stanton Member ID Guarantor Name 03/31/2022 1 [facility] [id number] Alicia Fears [id number] Alicia L Fears 03/22/2022 1 [facility] [id number] Alicia L Fears [id number] Alicia L Fears 04/01/2022 1 [facility] [id number] Alicia L Fears [id number] Alicia L Fears OBGyn Episode Ob Episode Information Episode Created Date Number of Fetuses Patient Bloodtype Patient rh Status Prepregnancy Weight lbs Domestic Partner Domestic Partner Phone Father Name Social Staff Worker Status 03/10/20 21 1 CLOSED Fetus Data First Name Last Name Admitted to NICU Weight (g) Sex Living Outcome Pediatric Complications Fetus ID Race Codes Race Delivery Type 3175.14 4 F Full Term [id number] Repeat Randall Calculation Initial Randall Date Initial Exam Date Initial Exam Provider Initial Ultrasound Date Last Menstrual Period Date Ultra Sound Weeks Gestation 0 Eighteen To Twenty Week Randall Update Ultra Sound Date Fundal Height At Umbil Quickening Date Ultra Sound Latest Weeks Gestation Final Randall Confirmed By Final Randall Confirmed Date Final Randall Date Ultra Sound Latest Days Gestation 0 0 Menstrual History Last Menstrual Date Menses Monthly On Bcp Conception Prior Menses Frequency Hcg Plus Date Menarche Onset Age Delivery Information Delivery Date Delivery Type Labor Anesthesia Weeks Gestation Incision Type Labor Labor Length Hrs Delivered By Post Complications Tubal Sterilization Discharge Date Comments 4 38 Discharge Information Feeding Method Contraceptive Method Maternal HG B and HCT Levels Ob Episode Information Episode Created Date Number of Fetuses Patient Bloodtype Patient rh Status Prepregnancy Weight lbs Domestic Partner Domestic Partner Phone Father Name Social Staff Worker Status 03/10/20 21 1 CLOSED Fetus Data First Name Last Name Admitted to NICU Weight (g) Sex Living Outcome Pediatric Complications Fetus ID Race Codes Race Delivery Type 2863.07 [id number] F Full Term [id number] Primary Randall Calculation Initial Randall Date Initial Exam Date Initial Exam Provider Initial Ultrasound Date Last Menstrual Period Date Ultra Sound Weeks Gestation 0 Eighteen To Twenty Week Randall Update Ultra Sound Date Fundal Height At Umbil Quickening Date Ultra Sound Latest Weeks Gestation Final Randall Confirmed By Final Randall Confirmed Date Final Randall Date Ultra Sound Latest Days Gestation 0 0 Menstrual History Last Menstrual Date Menses Monthly On Bcp Conception Prior Menses Frequency Hcg Plus Date Menarche Onset Age Delivery Information Delivery Date Delivery Type Labor Anesthesia Weeks Gestation Incision Type Labor Labor Length Hrs Delivered By Post Complications Tubal Sterilization Discharge Date Comments 6 41 Discharge Information Feeding Method Contraceptive Method Maternal HG B and HCT Levels Ob Episode Information Episode Created Date Number of Fetuses Patient Bloodtype Patient rh Status Prepregnancy Weight lbs Domestic Partner Domestic Partner Phone Father Name Social Staff Worker Status 03/10/20 21 1 CLOSED Fetus Data First Name Last Name Admitted to NICU Weight (g) Sex Living Outcome Pediatric Complications Fetus ID Race Codes Race Delivery Type , Spontane ous [id number] Randall Calculation Initial Randall Date Initial Exam Date Initial Exam Provider Initial Ultrasound Date Last Menstrual Period Date Ultra Sound Weeks Gestation 0 Eighteen To Twenty Week Randall Update Ultra Sound Date Fundal Height At Umbil Quickening Date Ultra Sound Latest Weeks Gestation Final Randall Confirmed By Final Randall Confirmed Date Final Randall Date Ultra Sound Latest Days Gestation 0 0 Menstrual History Last Menstrual Date Menses Monthly On Bcp Conception Prior Menses Frequency Hcg Plus Date Menarche Onset Age Delivery Information Delivery Date Delivery Type Labor Anesthesia Weeks Gestation Incision Type Labor Labor Length Hrs Delivered By Post Complications Tubal Sterilization Discharge Date Comments 3 Discharge Information Feeding Method Contraceptive Method Maternal HG B and HCT Levels
--- NOTE | 2024-11-27 10:03 | ECG_ITS ---
Test Date: 2024-11-27 10:08:44 Measurements Intervals [place] Rate: 75 P: 12 DE: 129 QRS: 0 QRSD: 87 T: -1 QT: 369 QTc: 414 Interpretive Statements SINUS RHYTHM POSSIBLE ANTERIOR MYOCARDIAL INFARCTION, AGE INDETERMINATE Electronically Signed On 11-27-2024 17:26:21 CDT by Zaki Ball D.O
== END 2024-11-27 09:36 | disposition home or self-care (01) ==
LOC: ANHSURGERY 09:43
PROVIDERS: PCP Family Medicine; Visit Provider Otolaryngology
DX: Z01.818 Encounter for other preprocedural examination (principal); I10 Essential (primary) hypertension
CPT/HCPCS: 93005

== ENCOUNTER 2024-12-03 00:40 | Day surgery (SDC) | payer OTHER, SELFPAY ==
[2024-11-26 10:09] VITALS: BMI 34.2
--- NOTE | 2024-11-26 10:17 | PC.NURSE ---
Report to the Outpatient Waiting Room, entrance under the green pavilion located off [facility], at time _0830_ on date 12/03/24__. Planned Procedure Time: _1030_.? Time changes happen often and if your time is changed the preop area will call you the afternoon before. - You and your visitor will be asked to self-screen and do not enter if you have any COVID symptoms. Please call surgeon if you need to reschedule. - A mask is optional within the hospital at this time. Patients may have clear liquids (water, carbonated beverages, clear teas, apple juice) until 3 hours prior to surgery with a maximum of 20 ounces. - No food from midnight until time of surgery and no smoking, or chewing tobacco (or any form of nicotine). No chewing gum, candy or mints. - Infants may have breast milk until 4 hours before surgery, infant formula 6 hours prior to surgery. - Children will be allowed to drink immediately following surgery.? If applicable, please bring a bottle or sippy cup to assist with drinking. Juice, water, soda, and popsicles are readily available.? For infants on formula, please bring formula the day of surgery.? Pacifiers are allowed. Take only the following medications with a SIP of water on the morning of surgery: ____CITALOPRAM DO NOT STOP ANY OF YOUR OTHER PRESCRIPTION MEDICATIONS PRIOR TO SURGERY EXCEPT THE FOLLOWING Hold all vitamins and supplements for 3 days per anesthesiologist. Medications to discontinue per physician Date to take last dose Please no make-up, nail central african, hairspray, perfume, deodorant, or body powder the day of surgery.? No jewelry (including any body piercings) or valuables the day of surgery, leave them at home.? Please take a shower or bath the night before, or the morning of, surgery with an antibacterial soap.? Wear comfortable, loose fitting clothing.? Children are encouraged to wear pajamas. - Jewelry must be removed prior to entering the operating room.? Rings and piercings that are not removed may be cut off. - The hospital will not accept responsibility for valuables.? - Please leave all valuables, including medications, at home the day of surgery. If you are going home after surgery, a licensed water taxi driver must drive you home.? - NO public transportation without another adult if you receive anesthesia. - We recommend that an adult stay with you for 24 hours following discharge. - We also recommend that you do not drive, make important decision, drink alcoholic beverages, or take any drugs that were not prescribed by your health care provider for at least 24 hours after your discharge time. For Pediatric surgeries, we recommend two adults accompany the child home. Follow any additional instructions given to you from your surgeon. Telephone instructions given to TWIN_and asked if any additional questions and then verbalized understanding. Patient advised to call surgeon office or pre surgery nurse liaison [phone] if any additional questions.
--- NOTE | 2024-12-02 15:32 | PM.IMHP ---
H&P: HPI History of Present Illness Date/Time: 12/02/24 15:32 Chief Complaint: tonsillar hypertrophy recurrent tonsillitis snoring adenoid hypertrophy patient presents for planned surgical procedure. Review of Systems Review of Systems: All systems reviewed & are unremarkable except as noted in HPI and below PMFSH Past Medical History Medical History Recurrent tonsillitis Morbid (severe) obesity due to excess calories URI, acute Strain of peroneal tendon Odynophagia Migraine with aura MDD (major depressive disorder) Goiter Essential (primary) hypertension Dietary counseling and surveillance (11/17/17) Acute streptococcal pharyngitis Acute bacterial conjunctivitis of right eye Acute bacterial conjunctivitis of left eye Chronic headaches Morbid (severe) obesity due to excess calories Lipid screening Benign reactive hypertension Migraines Family History Family History Sibling Family history of migraine headaches Mother Hypertension Family history of heart disease in male family member before age 55 Other Breast cancer, Onset Age: 58 breast cancer both sides, brain, lung Social History Social History Social History: Smoking packs per day: 0.5 Smoking cigarettes per day: 10.0 Years smoked: 7 Smoking pack-years: 3.50 Smoking status: Former smoker Tobacco type: e-cigarettes/vaping Second hand tobacco smoke exposure: No Smoking end date: 03/24/14 Additional smoking assessment comments: 10 YRS, QUIT 2016 Alcohol intake: current Drinks per week: 3 Alcohol use details: once a month Substance use: never Substance use type: does not use Do You Feel Safe in your Home?: Yes Lack of Transportation: No Lack of Food: Never True Current Housing: I Have Housing Concerned About Future Housing: No Difficulty Paying Gas/Electric Bills: No Difficulty Paying for Meds: No Currently Unemployed: No Education: Don't Know Difficulty w/ Childcare or Family Care: No Living arrangements: with family Occupation/Education: occupation Gender identity (if verbalized by the patient): Female Sexual Orientation (if Verbalized by the Patient): Straight or Heterosexual Meds Home Medications and Allergies Home Medications ?Medication ?Instructions ?Recorded ?Confirmed ?Type rizatriptan 10 mg tablet 10 mg PO .qd PRN migraine headache 01/22/22 11/26/24 Rx #10 tabs valacyclovir 1 gram tablet See Rx Instructions .Route 11/23/23 11/26/24 Rx .COMPLEX #90 tabs topiramate 50 mg tablet See Rx Instructions .Route 12/30/23 11/26/24 Rx .COMPLEX #180 tabs omeprazole 40 mg capsule,delayed See Rx Instructions .Route 06/13/24 11/26/24 Rx release .COMPLEX #90 caps escitalopram oxalate 20 mg tablet See Rx Instructions .Route 08/08/24 11/26/24 Rx .COMPLEX #90 tabs propranolol 60 mg capsule,24 See Rx Instructions .Route .COMPLEX 11/26/24 11/26/24 History hr,extended release trazodone 50 mg tablet 50 mg PO HS PRN sleep 11/26/24 11/26/24 History Allergies Allergy/AdvReac Type Severity Reaction Status Date / Time lisinopril Allergy Unknown cough Verified 11/26/24 10:06 METOCLOPRAMIDE HCL Allergy Mild DIZZINESS Uncoded 11/26/24 10:06 Exam Narrative: Large tonsils large adenoids Assessment and Plan Assessment and plan (1) Adenoid hypertrophy: Code(s): J35.2 - Hypertrophy of adenoids Status: Acute Assessment and Plan: Plan will be OR adenoidectomy tonsillectomy and patient has had multiple sore throats over the past 12 months multiple that was strep positive. Difficulty breathing these tonsils are large. Risks of surgery discussed bleeding infection damage to surrounding structures need for further procedures change in taste change in swallow which could be permanent postoperative bleeding 5% chance time off work time off school here at risk of narcotic use. Hearing risks medication use. Patient voiced understanding of these risks and agreed. Failure to resolve symptoms if not due to the tonsils or adenoids. (2) Snoring: Code(s): R06.83 - Snoring Status: Acute (3) Recurrent tonsillitis: Code(s): J03.91 - Acute recurrent tonsillitis, unspecified Status: Acute
[2024-12-03] VITALS (11 sets, daily range): BP systolic 106–127; BP diastolic 53–84; PULSE 66–88; RESP 9–20; TEMP 36.2–36.8; O2SAT 96–100; BMI 39.0
--- NOTE | ~2024-12-03 | US_ITS ---
EXAMINATION: US venous doppler [facility] DATE: 12/03/2024 13:29 INDICATION: Bilateral lower limb pain TECHNIQUE: Grayscale ultrasound images without and with compression and Doppler ultrasound images of the bilateral lower extremity veins were obtained. COMPARISON: None. FINDINGS: The visualized portions of right common femoral vein, profunda (deep) femoral vein, femoral vein, pop liteal vein, posterior tibial veins, peroneal veins, gastrocnemius vein and greater saphenous vein ou tflow are patent. The visualized portions of left common femoral vein, profunda femoral vein, femoral vein, popliteal v ein, posterior tibial veins, peroneal veins, gastrocnemius vein and greater saphenous vein outflow ar e patent. IMPRESSION: 1. No deep venous thrombosis in either lower limb. Reviewed, dictated and finalized at location A.
--- NOTE | 2024-12-03 07:23 | WPDHPUPDATE1 ---
History and Physical Update Update Date/Time: 12/03/24 07:23 History and Physical has been reviewed, including an updated exam of the patient. There are NO changes in the patient's condition. Risks, benefits, and alternatives have been discussed and questions answered. Patient agrees to proceed with procedure.
[2024-12-03] MEDS: ACETAMINOPHEN 500 MG TABLET 1000 MG PO (09:30)
[2024-12-03] MEDS: LACTATED RINGERS 1,000 ML 30 ML IV CONT (09:45)
--- NOTE | 2024-12-03 09:57 | P.PNAN_ITS ---
Anes - Initial Pre Proc Eval Procedure: Operation Date: 12/03/24 10:30 Proposed Procedures p Tonsillectomy And Adenoidectomy - Jeovany Harper MD Date/Time: 12/03/24 09:57 Surgeon: Jeovany Harper MD Pre Op Diagnosis: Chr Tonsilliti, hyper of Adenoids, snoring Patient Data Age: 39 Gender: F Height: 1.57 m Weight: 85 kg Allergies Allergy/AdvReac Type Severity Reaction Status Date / Time lisinopril Allergy Unknown cough Verified 12/03/24 09:50 METOCLOPRAMIDE HCL Allergy Mild DIZZINESS Uncoded 12/03/24 09:50 Home Medications ?Medication ?Instructions ?Recorded ?Confirmed ?Type rizatriptan 10 mg tablet 10 mg PO .qd PRN migraine headache 01/22/22 11/26/24 Rx #10 tabs valacyclovir 1 gram tablet See Rx Instructions .Route 11/23/23 11/26/24 Rx .COMPLEX #90 tabs topiramate 50 mg tablet See Rx Instructions .Route 12/30/23 11/26/24 Rx .COMPLEX #180 tabs omeprazole 40 mg capsule,delayed See Rx Instructions .Route 06/13/24 11/26/24 Rx release .COMPLEX #90 caps escitalopram oxalate 20 mg tablet See Rx Instructions .Route 08/08/24 11/26/24 Rx .COMPLEX #90 tabs propranolol 60 mg capsule,24 See Rx Instructions .Route .COMPLEX 11/26/24 11/26/24 History hr,extended release trazodone 50 mg tablet 50 mg PO HS PRN sleep 11/26/24 11/26/24 History Patient hx anesthesia problems: none Family hx anesthesia problems: none Results Review: All pre-operative results and documents have been reviewed as part of the pre- operative evaluation. [facility] Past Medical History Medical History Recurrent tonsillitis Morbid (severe) obesity due to excess calories URI, acute Strain of peroneal tendon Odynophagia Migraine with aura MDD (major depressive disorder) Goiter Essential (primary) hypertension Dietary counseling and surveillance (11/17/17) Acute streptococcal pharyngitis Acute bacterial conjunctivitis of right eye Acute bacterial conjunctivitis of left eye Chronic headaches Morbid (severe) obesity due to excess calories Lipid screening Benign reactive hypertension Migraines Family History Family History Sibling Family history of migraine headaches Mother Hypertension Family history of heart disease in male family member before age 55 Other Breast cancer, Onset Age: 58 breast cancer both sides, brain, lung Social History Social History Social History: Smoking packs per day: 0 Smoking cigarettes per day: 0.0 Years smoked: 10 Smoking pack-years: 0.00 Smoking status: Former smoker Tobacco type: cigarettes Second hand tobacco smoke exposure: No Smoking end date: 03/24/14 Additional smoking assessment comments: 10 YRS, QUIT 2016 Alcohol intake: current Alcohol use details: once a month Substance use: never Substance use type: does not use Do You Feel Safe in your Home?: Yes Lack of Transportation: No Lack of Food: Never True Current Housing: I Have Housing Concerned About Future Housing: No Difficulty Paying Gas/Electric Bills: No Difficulty Paying for Meds: No Currently Unemployed: No Education: Don't Know Difficulty w/ Childcare or Family Care: No Living arrangements: with family Occupation/Education: occupation Gender identity (if verbalized by the patient): Female Sexual Orientation (if Verbalized by the Patient): Straight or Heterosexual Anes - Eval Final PreProcedure Day of Procedure 12/03/24 09:57 Patient weight: obese Heart: regular rate and rhythm Lungs: clear to auscultation Airway: Mallampati scale class II Neurological: alert and oriented Last oral intake: >/= 8 hours ASA classification: III Emergent: no Anesthetic plan: proceed Anesthesia type and monitoring: general ETT and standard monitoring Results Review: All pre-operative results and documents have been reviewed as part of the pre- operative evaluation. Informed Consent: The patient's anesthetic plan and its attendant risks and benefits were discussed with the patient/family/POA. Questions were solicited and answers provided to the satisfaction of the patient/family/POA.
--- NOTE | 2024-12-03 10:18 | S_PTH ---
PATIENT: Alicia Kirkpatrick LOC: [facility] U#:[id number] AGE/SX: 39/F ROOM: RE12/03/[address]: Jeovany Harper MD : 1985 BED: DIS: 12/03/2024 SPEC #: [id number] RECD: 12/03/24 13:22 STATUS: DAGO REJuan #: [id number] OJ: 12/03/24 10:[address]: Jeovany Harper DEPT: [facility] Surgical RECD BY: Natalee Hunt ENTERED: 12/03/24 13:22 SP TYPE: Surgical OTHR DR: Anam Ledesma MD Tissues: A - Tonsils Procedures: Gross and Microscopic Level 2
--- NOTE | 2024-12-03 11:00 | P.OP_ITS ---
Procedure Note - Detailed Date of Procedure 12/03/24 Pre-op Diagnosis Recurrent tonsillitis Post-op Diagnosis Same Procedure Performed Tonsillectomy Surgeon Jeovany Harper MD Anesthesia General Indications See above Findings Severely severely scarred in tonsils. Little bit of excess bleeding total by 5 cc. No complications. Description of Procedure Patient identified consent verified the preoperative holding area. Patient brought to the operating room. Time-out performed. General anesthesia induced endotracheal tube secured airway. Patient was prepped draped position procedure confirmed 2nd time-out performed. McIvor mouth gag inserted to reveal tonsils described above. They were removed bilaterally in the extracapsular plane. In- between tonsils McIvor mouth gag was lowered reopened to allow blood flow to return to the tongue. Once the tonsils were out we had Anesthesia Valsalva to ensure no further bleeding ensued. Once the tonsils were out red rubber catheters were inserted transnasally to suspend the palate anteriorly adenoids not present. Red rubber catheters removed. McIvor mouth gag removed. Patient tolerated the procedure well no complications blood loss 5 cc. Care the patient given back to Anesthesiology. Patient taken to PACU. Estimated Blood Loss 5 Drains No Packing No Pathology Yes Complications No immediate complications Condition Stable Disposition PACU [facility] Billing Surgery - Charge Forward: Surgery Billing
[2024-12-03] MEDS: fentaNYL CITRATE INJ (*CRX) 100 MCG/2 ML VIAL 25 MCG IV PUSH ×4 (11:22→11:39)
--- NOTE | 2024-12-03 12:54 | SUR.PHASEII ---
1245 - pt complains of hiro calf pain. lower extremities are warm and pink in color. strong pulses noted. Dr. Harper notified. Dr. Galvez informed by Dr. Harper. order placed for hiro venous doppler.
[2024-12-03] MEDS: oxyCODONE (*CRX) 5 MG/5 ML ORAL SOLN IR PO (13:00)
--- NOTE | 2024-12-03 13:47 | SUR.PHASEII ---
6952 - dr. driver aware of doppler results. ok to send pt home
== END 2024-12-03 13:45 | disposition home or self-care (01) ==
PROVIDERS: PCP Family Medicine; Visit Provider Otolaryngology
PROC: (CPT 42826; principal; 2024-12-03 10:30)
DX: J03.91 Acute recurrent tonsillitis, unspecified (principal); R06.83 Snoring; R22.43 Localized swelling, mass and lump, lower limb, bilateral; G89.18 Other acute postprocedural pain; F32.9 Major depressive disorder, single episode, unspecified; I10 Essential (primary) hypertension; R51.9 Headache, unspecified; E66.9 Obesity, unspecified; Z68.39 Body mass index [BMI] 39.0-39.9, adult; Z87.891 Personal history of nicotine dependence; Z80.3 Family history of malignant neoplasm of breast; Z82.49 Family history of ischemic heart disease and other diseases of the circulatory system
CPT/HCPCS: 42826; 88302; 93970; A9270; J0330; J1100; J2250; J2405; J2704; J3010; J7040; J7120

== ENCOUNTER 2024-12-05 15:50 | Emergency (ER) | payer OTHER, SELFPAY ==
[2024-12-05] VITALS (7 sets, daily range): BP systolic 112–122; BP diastolic 69–85; PULSE 72–105; RESP 16–20; TEMP 36.6–37.2; O2SAT 97–99
--- NOTE | 2024-12-05 18:13 | ED_ITS ---
HPI - General Adult General Chief complaint: Unspecified Stated complaint: post tonsillectomy, sob Time Seen by Provider: 12/05/24 17:05 History of Present Illness HPI narrative: Patient is a 39-year-old female who presents to the ER with increased swelling after tonsillectomy surgery. She reports she recently had her tonsils removed after having tonsillitis 3 times in the past 4 months. Patient denies bleeding from the site but endorses swelling and pain. Her ENT surgeon reports he did not notice any swelling at patient's surgical site either but sent her to the ER for steroids. Patient denies any neck stiffness, recent fevers, or nasal congestion. Related Data Home Medications ?Medication ?Instructions ?Recorded ?Confirmed ?Last Taken ?Type propranolol 60 mg capsule,24 See Rx Instructions .Route .COMPLEX 11/26/24 11/26/24 Unknown History hr,extended release trazodone 50 mg tablet 50 mg PO HS PRN sleep 11/26/24 11/26/24 Unknown History Allergies Allergy/AdvReac Type Severity Reaction Status Date / Time lisinopril Allergy Unknown cough Verified 12/05/24 15:58 metoclopramide AdvReac Mild Dizziness Verified 12/05/24 15:58 Review of Systems Review of Systems: All systems reviewed & are unremarkable except as noted in HPI and below PMFSH Past Medical History Medical History Recurrent tonsillitis Morbid (severe) obesity due to excess calories URI, acute Strain of peroneal tendon Odynophagia Migraine with aura MDD (major depressive disorder) Goiter Essential (primary) hypertension Dietary counseling and surveillance (11/17/17) Acute streptococcal pharyngitis Acute bacterial conjunctivitis of right eye Acute bacterial conjunctivitis of left eye Chronic headaches Morbid (severe) obesity due to excess calories Lipid screening Benign reactive hypertension Migraines Family History Family History Sibling Family history of migraine headaches Mother Hypertension Family history of heart disease in male family member before age 55 Other Breast cancer, Onset Age: 58 breast cancer both sides, brain, lung Social History Social History Social History: Smoking packs per day: 0 Smoking cigarettes per day: 0.0 Years smoked: 10 Smoking pack-years: 0.00 Smoking status: Former smoker Tobacco type: cigarettes Second hand tobacco smoke exposure: No Smoking end date: 03/24/14 Additional smoking assessment comments: 10 YRS, QUIT 2017 Alcohol intake: current Alcohol use details: once a month Substance use: never Substance use type: does not use Do You Feel Safe in your Home?: Yes Lack of Transportation: No Lack of Food: Never True Current Housing: I Have Housing Concerned About Future Housing: No Difficulty Paying Gas/Electric Bills: No Difficulty Paying for Meds: No Currently Unemployed: No Education: Don't Know Difficulty w/ Childcare or Family Care: No Living arrangements: with family Occupation/Education: occupation Gender identity (if verbalized by the patient): Female Sexual Orientation (if Verbalized by the Patient): Straight or Heterosexual Exam Narrative: GENERAL: Ill appearing, well-nourished, non-toxic, in no acute distress. HEAD: Normocephalic, atraumatic. NECK: Supple. No adenopathy, no masses. Significant swelling. White patches in the back of pt's throat (most likely related to cauterization), no visible bleeding RESPIRATORY: Airway patent, respirations nonlabored. Clear to auscultation bilaterally, no rales, rhonchi, wheezing. CARDIOVASCULAR: Regular rate and rhythm without murmurs, rubs, or gallops. Peripheral pulses 2+ and equal bilaterally. ABDOMINAL: Soft, nontender, nondistended, no hepatosplenomegaly. Normoactive BS. MUSCULOSKELETAL: Moves all extremities. Strength/ROM intact without gross deformities. SKIN: Warm, dry, normal color. No rashes. NEURO: A&O X3. Speech clear. Cranial nerves II-XII intact. No ataxic movements. PSYCHIATRIC: Appropriate mood and affect. Normal interaction. Course Vital Signs Vital signs: Vital Signs Temperature 37.2 C 12/05/24 15:53 Pulse Rate 105 H 12/05/24 15:53 Respiratory Rate 20 12/05/24 15:53 Blood Pressure 122/85 12/05/24 15:53 Pulse Oximetry 99 12/05/24 15:53 Oxygen Delivery Room Air 12/05/24 15:53 Temperature 36.6 C 12/05/24 19:01 Pulse Rate 86 12/05/24 19:01 Respiratory Rate 16 12/05/24 19:01 Blood Pressure 121/70 12/05/24 19:01 Pulse Oximetry 97 12/05/24 19:01 Oxygen Delivery Room Air 12/05/24 16:28 Medical Decision Making MDM Narrative Medical decision making narrative: Patient is a 39-year-old female who presents to the ER with increased swelling after tonsillectomy surgery. She reports she recently had her tonsils removed after having tonsillitis 3 times in the past 4 months. Patient denies bleeding from the site but endorses swelling and pain. Her ENT surgeon reports he did not notice any swelling at patient's surgical site either but sent her to the ER for steroids. Patient denies any neck stiffness, recent fevers, or nasal congestion. Labs Ordered: None necessary Imaging Ordered: None necessary Medications Ordered: 1 L normal saline IV bolus, Diflucan 100 mg p.o., Decadron 10 mg IV, Dilaudid 0.5 mg IV, morphine 4 mg IV Diagnosis: Postoperative swelling, postoperative pain Consults: ENT, Dr. Harper, will request patient receives Decadron IV and pain control Patient Education/Shared MDM: Patient received IV pain medication and IV steroids. She endorses significant improvement of symptoms following medication administration. Patient strongly advised to maintain hydration status upon discharge and follow-up with her ENT as scheduled. She will be discharged home with a prescription for prednisone 20 mg x 3 days. She will be given at a dose of Diflucan here in the ER in case white patches on her throat are related to yeast. Patient was advised to call her ear nose and throat doctor before taking more steroids, but she will have some at home if he suggests she should take more. Patient was able to swallow ice water without difficulty prior to discharge. Strict return precautions provided. Patient verbalized catrinain g and is in agreement with plan. Vital signs stable at time of discharge. All questions answered. Vital Signs Vital Signs: Vital Signs Temperature 37.2 C 12/05/24 15:53 Pulse Rate 105 H 12/05/24 15:53 Respiratory Rate 20 12/05/24 15:53 Blood Pressure 122/85 12/05/24 15:53 Pulse Oximetry 99 12/05/24 15:53 Oxygen Delivery Room Air 12/05/24 15:53 Temperature 36.6 C 12/05/24 19:01 Pulse Rate 86 12/05/24 19:01 Respiratory Rate 16 12/05/24 19:01 Blood Pressure 121/70 12/05/24 19:01 Pulse Oximetry 97 12/05/24 19:01 Oxygen Delivery Room Air 12/05/24 16:28 Discharge Plan Discharge Clinical Impression: Postoperative pain, Postoperative edema, Difficulty swallowing Patient Disposition: Home Condition: Guarded Prognosis Instructions: Antibiotic Form, Tonsillectomy (DC) Additional Instructions: Please return to the ER with any worsening symptoms. Follow-up with your ENT as needed and plan. Take all medications as prescribed, including regularly scheduled medications. He will be given a prescription for oral steroids the please contact your ear nose and throat doctor before taking them. You may treat your pain with a prescription given to you by your ear nose and throat doctor. Patient Language: Citizen Of [place] Prescriptions: New prednisone 20 mg tablet 20 mg PO DAILY Qty: 4 0RF Rx Instructions: Please contact your ENT before taking this medication. No Action rizatriptan 10 mg tablet 10 mg PO .qd PRN (Reason: migraine headache) Qty: 10 2RF Rx Instructions: may repeat once after at least 2 hours trazodone 50 mg tablet 50 mg PO HS PRN (Reason: sleep) Rx Instructions: TAKE 1 TABLET BY MOUTH ONCE DAILY AT BEDTIME PRN; propranolol 60 mg capsule,extended release 24 hr See Rx Instructions .ROUTE .COMPLEX Rx Instructions: Take 1 capsule by mouth once daily takes at hs valacyclovir 1 gram tablet See Rx Instructions .ROUTE .COMPLEX Qty: 90 1RF Dose Instruction: Take 1 tablet by mouth once daily Rx Instructions: Take 1 tablet by mouth once daily topiramate 50 mg tablet See Rx Instructions .ROUTE .COMPLEX Qty: 180 0RF Dose Instruction: Take 1 tablet by mouth twice daily Rx Instructions: Take 1 tablet by mouth twice daily omeprazole 40 mg capsule,delayed release(DR/EC) See Rx Instructions .ROUTE .COMPLEX Qty: 90 1RF Dose Instruction: Take 1 capsule by mouth once daily Rx Instructions: Take 1 capsule by mouth once daily escitalopram oxalate 20 mg tablet See Rx Instructions .ROUTE .COMPLEX Qty: 90 1RF Dose Instruction: Take 1 tablet by mouth once daily Rx Instructions: Take 1 tablet by mouth once daily oxycodone 5 mg tablet 5 mg PO Q4-6H PRN (Reason: pain) Qty: 21 0RF prednisone 20 mg tablet 20 mg PO DAILY Qty: 1 0RF Follow-up/Referrals: Jeovany Harper MD [Primary Care Provider] - Time of Disposition: 20:47
[2024-12-05] MEDS: MORPHINE SULFATE (*CRX) 4 MG/ML INJ IV PUSH (18:43)
[2024-12-05] MEDS: dexAMETHasone SOD PHOS INJ 10 MG/ML 1 ML VIAL IV PUSH (18:43)
[2024-12-05] MEDS: SODIUM CHLORIDE 0.9% IV 1,000 ML 999 ML IV CONT (18:44)
[2024-12-05] MEDS: HYDROmorphone HCL INJ (*CRX) 2 MG/ML VIAL 0.5 MG IV PUSH (20:32)
[2024-12-05] MEDS: FLUCONAZOLE 100 MG TABLET PO (20:48)
== END 2024-12-05 20:56 | disposition home or self-care (01) ==
PROVIDERS: Emergency Provider Registered Nurse; PCP Otolaryngology
DX: G89.18 Other acute postprocedural pain (principal); R13.19 Other dysphagia; R60.0 Localized edema
CPT/HCPCS: 96361; 96374; 96375; 99284; A9270; J1100; J1171; J2270; J7030